=== PATIENT | female | born 1965 | race American Indian/Alaskan Native ===

== ENCOUNTER 2017-02-17 11:30 | Emergency (ER) | payer OTHER ==
[2017-02-17 12:37] LABS: Basophils % (Auto) 0.4 % (0.0-1.8); Eosinophils % (Auto) 2.4 % (0.0-4.3); Hematocrit 41.4 % (30.3-42.9); Hemoglobin 13.9 gm/dl (10.1-14.3); Mean Corpuscular HGB Conc 34 % (30-34); Mean Corpuscular Hemoglobin 30 pg (28-32); Mean Corpuscular Volume 88 fl (79-97); Platelet Count 221 K/mm3 (140-440); Red Blood Count 4.72 M/mm3 (3.65-5.03); Red Cell Distribution Width 13.1 % (13.2-15.2); White Blood Count 4.8 K/mm3 (4.5-11.0)
[2017-02-17 12:49] LABS: INR 1.14 (0.87-1.13)
[2017-02-17 12:50] LABS: Partial Thromboplastin Time 33.2 Sec. (24.2-36.6)
--- NOTE | 2017-02-17 13:05 | Cat Scan Report ---
CT HEAD WITHOUT CONTRAST: HISTORY: Neurological deficits. Compared to 08/27/14. A chronic cortical infarct measuring 1.6 cm is identified high in the medial left frontal lobe. This is within the anterior cerebral artery territory. The remaining brain parenchyma demonstrates normal attenuation. The rai-white interface is well defined. Normal ventricular size. No evidence for hemorrhage, mass or large area of acute ischemia. The mastoid air cells and visualized portions of the sinuses are normal. IMPRESSION: No acute intracranial process identified. Chronic focal infarct in the medial left frontal lobe as described.
[2017-02-17 13:11] LABS: Anion Gap 13 mmol/L; BUN/Creatinine Ratio 15.55; Blood Urea Nitrogen 14 mg/dL (7-17); Calcium 9.2 mg/dL (8.4-10.2); Carbon Dioxide 25 mmol/L (22-30); Chloride 104.9 mmol/L (98-107); Glucose 85 mg/dL (65-100); Potassium 4.3 mmol/L (3.6-5.0); Sodium 139 mmol/L (137-145)
[2017-02-17] MEDS ORDERED: ANTIVERT PO ONE (19:53)
[2017-02-17] MEDS ORDERED: NACL 0.9% 1000 ML 1,000 ML IV ONE (19:53)
--- NOTE | 2017-02-17 19:55 | Emergency Department Report ---
HPI - General Chief Complaint: Dizziness Time Seen by Provider: 02/17/17 19:28 - HPI HPI: Room 18 The patient is a 51-year-old female presenting with a chief complaint of syncope. The patient states for the past 2-3 days she has had a constant headache. The patient states secondary to not feel well for the past 23 days she has not eaten much but has drank water. Today at work at approximately 11: 00 this morning she states while walking she began to feel lightheaded and lost her balance lost consciousness. There were no reported convulsions. Patient denies any history of recent flights or long car trips. Patient states she feels okay currently. The room spins whenever she sits up. Patient states she felt slight palpitations prior to losing consciousness but denies chest pain or shortness of breath Location: [see above] Duration: [see above] Quality: Dizziness Severity: [see above] Modifying factors: [see above] Context: [see above] Mode of transportation: [not driving] ED Past Medical Hx - Past Medical History Hx Hypertension: Yes Hx CVA: Yes (no residual deficits) Hx Renal Disease: Yes Hx Psychiatric Treatment: Yes (DEPRESSION) - Surgical History Additional Surgical History: HYSTERECTOMY - Family History Family history: no significant - Social History Smoking Status: Never Smoker Substance Use Type: None - Medications Home Medications: Home Medications Medication Instructions Recorded Confirmed Last Taken Type Warfarin Sodium [Coumadin] 6 mg PO QDAY 02/17/17 02/17/17 Unknown History ED Review of Systems ROS: Stated complaint: DIZZINESS/LIGHT HEADED Other details as noted in HPI Comment: All other systems reviewed and negative Constitutional: denies: chills, fever Eyes: denies: eye pain, eye discharge, vision change ENT: denies: ear pain, throat pain Respiratory: denies: cough, shortness of breath, wheezing Cardiovascular: palpitations. denies: chest pain Endocrine: no symptoms reported Gastrointestinal: denies: abdominal pain, nausea, diarrhea Genitourinary: denies: urgency, dysuria, discharge Musculoskeletal: denies: back pain, joint swelling, arthralgia Skin: denies: rash, lesions Neurological: headache, vertigo, other (syncope). denies: weakness, paresthesias Psychiatric: denies: anxiety, depression Hematological/Lymphatic: denies: easy bleeding, easy bruising Physical Exam - Physical Exam Vital Signs: Vital Signs 02/17/17 02/17/17 02/17/17 11:46 18:34 18:40 Temperature 97.5 F L Pulse Rate 68 63 85 Respiratory 16 14 13 Rate Blood Pressure 175/103 O2 Sat by Pulse 100 99 Oximetry 02/17/17 18:50 Temperature Pulse Rate 64 Respiratory 16 Rate Blood Pressure 143/77 O2 Sat by Pulse Oximetry Physical Exam: GENERAL: The patient is well-developed well-nourished female lying on stretcher using cell phone not appear to be in acute distress. [] HEENT: Normocephalic. Atraumatic. Extraocular motions are intact. Patient has moist mucous membranes. No nystagmus. Patient becomes dizzy whenever she looks upward NECK: Supple. Trachea midline CHEST/LUNGS: Clear to auscultation. There is no respiratory distress noted. HEART/CARDIOVASCULAR: Regular. There is no tachycardia. There is no gallop rub or murmur. ABDOMEN: Abdomen is soft, nontender. Patient has normal bowel sounds. There is no abdominal distention. SKIN: There is no rash. There is no edema. There is no diaphoresis. NEURO: The patient is awake, alert, and oriented. The patient is cooperative. The patient has no focal neurologic deficits. The patient has normal speech. Cranial nerves II through XII grossly intact, no drift. Moves all extremities well. Normal sensation throughout MUSCULOSKELETAL: There is no evidence of acute injury. ED Course Vital Signs 02/17/17 02/17/17 02/17/17 11:46 18:34 18:40 Temperature 97.5 F L Pulse Rate 68 63 85 Respiratory 16 14 13 Rate Blood Pressure 175/103 O2 Sat by Pulse 100 99 Oximetry 02/17/17 18:50 Temperature Pulse Rate 64 Respiratory 16 Rate Blood Pressure 143/77 O2 Sat by Pulse Oximetry - Consultations Consultation #1: 02/17/17 20:05 [facility] paged 02/17/17 20:[address] Esquivel-states they will transfer the patient to [facility] ED Medical Decision Making - Lab Data Result diagrams: 02/17/17 12:24 02/17/17 12:24 Laboratory Tests 02/17/17 02/17/17 02/17/17 12:24 12:24 12:24 WBC 4.8 RBC 4.72 Hgb 13.9 Hct 41.4 MCV 88 MCH 30 MCHC 34 RDW 13.1 L Plt Count 221 Lymph % (Auto) 32.6 [place] % (Auto) 11.5 H Eos % (Auto) 2.4 Baso % (Auto) 0.4 Lymph # 1.6 [place] # 0.6 Eos # 0.1 Baso # 0.0 Seg Neutrophils % 53.1 Seg Neutrophils # 2.6 PT 14.5 INR 1.14 H APTT 33.2 Thrombin Time D-Dimer Sodium 139 Potassium 4.3 Chloride 104.9 Carbon Dioxide 25 Anion Gap 13 BUN 14 Creatinine 0.9 Estimated GFR > 60 BUN/Creatinine Ratio 15.55 Glucose 85 Calcium 9.2 Troponin T < 0.010 02/17/17 02/17/17 12:24 12:24 WBC RBC Hgb Hct MCV MCH MCHC RDW Plt Count Lymph % (Auto) [place] % (Auto) Eos % (Auto) Baso % (Auto) Lymph # [place] # Eos # Baso # Seg Neutrophils % Seg Neutrophils # PT INR APTT Thrombin Time 17.2 D-Dimer < 135.00 Sodium Potassium Chloride Carbon Dioxide Anion Gap BUN Creatinine Estimated GFR BUN/Creatinine Ratio Glucose Calcium Troponin T - EKG Data -: EKG Interpreted by Nv EKG shows normal: sinus rhythm Rate: normal - EKG Data When compared to previous EKG there are: no significant change Interpretation: unchanged when compared t (08/28/2014) - Radiology Data Radiology results: report reviewed (CT head), image reviewed (CT head) CT head (read by radiologist)-no acute intracranial abnormality. There are chronic sequela of atrophy and microvascular angiopathy. - Differential Diagnosis intracranial hemorrhage, ectopy, dysrhythmia, PE Critical care attestation.: If time is entered above; I have spent that time in minutes in the direct care of this critically ill patient, excluding procedure time. ED Disposition Clinical Impression: Syncope, Palpitations Disposition: DC/TX ANOTHER TYPE HEALTHCARE Is pt being admited?: No Does the pt Need Aspirin: No Condition: Fair Instructions: Syncope (ED) Referrals: PRIMARY CARE, [Primary Care Provider] - 3-5 Days Time of Disposition: 20:26 (awaiting acceptance)
--- NOTE | 2017-02-17 20:07 | Admit Criteria Form ---
Admission Criteria Documentation: SYNCOPE Clinical Indications for Admission to Inpatient Care ( Place 'X' for any and all applicable criteria): Admission is indicated for syncope and ANY ONE of the following (1)(2)(3)(4)(5) (6)(7) : [X ]I. Inpatient admission required rather than observation care (Also use Syncope: Observation Care Criteria as appropriate) because of ANY ONE of the following: [ ]a) Hemodynamic instability that is severe or persistent [ ]b) Cardiac arrhythmias of immediate concern identified or strongly suspected (eg, needs electrophysiologic study) [ ]c) Acute coronary syndrome identified (Also use Myocardial Infarction or Angina Criteria form ) [ ]d) Structural cardiac disorder (eg, aortic stenosis) suspected as cause that requires immediate correction [ ]e) Respiratory symptoms (eg, dyspnea, tachypnea) that are severe or persistent [ ]f) Neurologic signs or symptoms that are severe or persistent ( eg, stroke, seizures, altered mental status) [ ]g) Severe electrolyte abnormalities requiring inpatient care [ ]h) Supplemental oxygen or respiratory treatment for over 24 hrs that are performable only in acute inpatient setting [ ]i) IV fluid to replace significant ongoing (eg, for over 24 hrs ) losses (>3 L/m2 per day) [ ]j) Continuous intravenous infusion of anticoagulation, platelet inhibitor, vasoactive, or antiarrhythmic medication(15)(16) [ ]k) Pulmonary artery catheter monitoring [ ]l) Temporary pacemaker placement(17) [ ]m) Emergent cardioversion(18) [ X]n) Other conditions, treatment or monitoring requiring inpatient admission [ ]II. Suspicion of imminently dangerous cause (eg, rare causes like pericardial tamponade, pulmonary embolism) [ ]III. Syncope causing severe injury requiring hospitalization Extended stay beyond goal length of stay may be needed for(28) [ ]a) Dangerous arrhythmia(15)(23)(27)(29) [ ]b) Myocardial ischemia [ ]c) Seizure disorder [ ]d) Syncope-related injuries The original [email or web address] content created by [employer] has been revised. The portions of the content which have been revised are identified through the use of italic text or in bold, and [employer] has neither reviewed nor approved the modified material. All other unmodified content is copyright [employer]. Please see references footnoted in the original [facility] edition 2016
[2017-02-17] MEDS ORDERED: CATAPRES PO ONE (20:56)
[2017-02-17 23:36] VITALS: BP 152/82
== END 2017-02-17 23:36 | disposition other institution (70) ==
LOC: ED 11:30
DX: R55 Syncope and collapse (principal); R00.2 Palpitations; I10 Essential (primary) hypertension
CPT/HCPCS: 36415; 70450; 80048; 84484; 85025; 85379; 85610; 85670; 85730; 93005; 93010; 96360; 99285; J7030